=== PATIENT | female | born 1995 | race Caucasian/White ===

== ENCOUNTER → 2019-10-22 13:30 | Outpatient (REF) | payer OTHER, SELFPAY | LOC: ANHLAB 13:30 | PROVIDERS: PCP Physician Assistant; Visit Provider Nurse Practitioner | DX: D22.4 Melanocytic nevi of scalp and neck (principal) | CPT/HCPCS: 88305 ==

== ENCOUNTER 2022-09-20 15:57 | Outpatient (CLI) | payer OTHER, SELFPAY ==
--- NOTE | ~2022-09-20 | US_ITS ---
EXAMINATION: US OB <=14 wk fetus w TV DATE: 09/20/2022 17:20 INDICATION: Encounter for supervision abnormal TECHNIQUE: Real-time transabdominal and transvaginal obstetric ultrasound. FINDINGS: No prior studies for comparison. The uterus measures 6.05 x 4.3 x 5.2 cm. There is an intrauterine gestational sac, with pole id entified. The crown rump length measures 1.79 cm, which correlates with a estimated gestational age of 8 weeks 2 days. heart tones are identified measuring 175. There is a corpus luteal cyst of the left ovary measuring 1.2 cm. IMPRESSION: 1. SL IUP with an EGA of 8 weeks, 2 days (EDC by current ultrasound of 04/30/2023). Reviewed, dictated and finalized at location A. IMPRESSION: 1. SL IUP with an EGA of 8 weeks, 2 days (EDC by current ultrasound of 04/30/20 23).
== END 2022-09-20 15:58 | disposition home or self-care (01) ==
PROVIDERS: PCP Physician Assistant; Visit Provider Registered Nurse
DX: Z34.90 Encounter for supervision of normal pregnancy, unspecified, unspecified trimester (principal)
CPT/HCPCS: 76801; 76817

== ENCOUNTER 2023-01-28 08:09 | Outpatient (RCR) | payer OTHER, SELFPAY ==
[2023-01-28 09:38] LABS: Basophils Percent Auto 0.3 % (0.2-1.2); Eosinophils Absolute Auto 0.1 K/mm3 (0-0.3); Eosinophils Percent Auto 0.7 % (0-4.4); Hematocrit 30.9 % (37.0-47.0); Hemoglobin 10.4 g/dL (12.0-15.0); Immature Granulocyte Absolute 0.39 K/mm3 (0.00-0.031); Immature Granulocyte Percent A 3.2 % (0-0.5); Lymphocytes Absolute Auto 1.61 K/mm3 (0.9-3.2); Lymphocytes Percent Auto 13.3 % (18.3-44.2); Mean Corpuscular HGB Conc 33.7 g/dl (32-36); Mean Corpuscular Hemoglobin 29.9 pg (26-34); Mean Corpuscular Volume 88.8 fl (80-100); Monocytes Absolute Auto 0.7 K/mm3 (0.1-0.6); Monocytes Percent Auto 5.9 % (2.6-8.5); Neutrophils Absolute Auto 9.3 K/mm3 (1.3-6.7); Neutrophils Percent Auto 76.6 % (45.5-73.1); Platelet Count Result 279 k/mm3 (150-375); Red Blood Count 3.48 M/mm3 (4.2-5.4); Red Cell Distribution Width 12.8 % (11.5-14.5); White Blood Count 12.1 K/mm3 (4.5-10.0)
[2023-01-28 09:48] LABS: Glucose 1 Hour PP 50gm Dose 128 mg/dL
[2023-01-29] MEDS: RHO(D) IMMUNE GLOBULIN 300 MCG/2 ML SYRINGE IM (10:02)
== END 2023-04-28 23:59 | disposition home or self-care (01) ==
LOC: ANHLAB 08:09
PROVIDERS: PCP Physician Assistant; Visit Provider Obstetrics & Gynecology
DX: Z29.13 Encounter for prophylactic Rho(D) immune globulin (principal); O36.0190 Maternal care for anti-D [Rh] antibodies, unspecified trimester, not applicable or unspecified; Z3A.00 Weeks of gestation of pregnancy not specified
CPT/HCPCS: 36415; 82947; 85025; 85461; 86850; 86900; 86901; 90384; 96372; J2790

== ENCOUNTER 2023-04-05 12:37 | Outpatient (CLI) | payer OTHER, SELFPAY ==
--- NOTE | ~2023-04-05 | US_ITS ---
EXAMINATION: US venous doppler LE RT DATE: 04/05/2023 13:15 INDICATION: Right lower limb pain and swelling TECHNIQUE: Grayscale ultrasound images without and with compression and Doppler ultrasound images of the right lower extremity veins were obtained. COMPARISON: None. FINDINGS: The visualized portions of right common femoral vein, profunda (deep) femoral vein, femoral vein, pop liteal vein, peroneal trunk, posterior tibial veins, peroneal veins, gastrocnemius vein and greater s aphenous vein outflow are patent. IMPRESSION: 1. No deep venous thrombosis in the right lower limb. Reviewed, dictated and finalized at location A.
== END 2023-04-05 12:38 | disposition home or self-care (01) ==
PROVIDERS: PCP Physician Assistant; Visit Provider Obstetrics & Gynecology
DX: M79.89 Other specified soft tissue disorders (principal)
CPT/HCPCS: 93971

== ENCOUNTER 2023-04-11 07:43 | Inpatient (IN) | payer OTHER, SELFPAY ==
[2023-04-11] VITALS (141 sets, daily range): BP systolic 80–147; BP diastolic 45–115; PULSE 25–207; TEMP 36.8–37.7; O2SAT 64–100; BMI 34.9
--- NOTE | 2023-04-11 09:58 | WPDANESEPP ---
Anes - Eval Pre Procedure Procedure: labor epidural Date/Time: 04/11/23 09:58 Preop Diagnosis: labor pain Pre Op Diagnosis: Leaking Patient Data Age: 27 Gender: F Height: Weight: Last Vital Signs Pulse 108 H 04/11/23 08:45 BP 125/84 04/11/23 08:45 Allergies Allergy/AdvReac Type Severity Reaction Status Date / Time lanolin Allergy Unknown Verified 04/07/23 15:06 MED CHAP STICK Allergy Unknown LIP Uncoded 04/07/23 15:06 SWELLING AND SCABBING Home Medications Medication Instructions Recorded Confirmed Type prenat.vits,vazquez,[id number] 1 tablet PO DAILY 09/15/22 03/30/23 History ferrous sulfate 325 mg (65 mg 325 mg PO DAILY 02/01/23 03/30/23 History iron) tablet Laboratory Tests 04/11/23 09:53 WBC Pending RBC Pending Hgb Pending Hct Pending MCV Pending MCH Pending MCHC Pending RDW Pending Plt Count Pending MPV Pending Immature Gran % (Auto) Pending Neut % (Auto) Pending Lymph % (Auto) Pending [place] % (Auto) Pending Eos % (Auto) Pending Baso % (Auto) Pending Lymph # (Auto) Pending [place] # (Auto) Pending Eos # (Auto) Pending Baso # (Auto) Pending Abs Immat Gran (auto) Pending Absolute Neuts (auto) Pending Absolute Nucleated RBC Pending Nucleated RBC % Pending RPR Pending Patient hx anesthesia problems: none Family hx anesthesia problems: none Results Review: All pre-operative results and documents have been reviewed as part of the pre-operative evaluation. [facility] Past Medical History Medical History Asthma History of ankle fracture 2016 Migraines Surgical History Surgical History History of ankle surgery 2016 Family History Family History Grandparent Family history of coronary artery disease Mother Patient's mother is in good health Father Patient's father is in good health Social History Social History Smoking status: Never smoker Second hand tobacco smoke exposure: No Alcohol intake: former Alcohol use details: Not since Substance use: never Lack of Transportation: No Lack of Food: Never True Current Housing: I Do Not Have Housing Concerned About Future Housing: No Difficulty Paying Gas/Electric Bills: No Difficulty Paying for Meds: No Currently Unemployed: No Education: Master's Degree or Higher Difficulty w/ Childcare or Family Care: No Living arrangements: with family Occupation/Education: occupation Gender identity (if verbalized by the patient): Female Sexual Orientation (if Verbalized by the Patient): Straight or Heterosexual Spiritual care concerns: No Exam Day of Procedure 04/11/23 09:58 Patient weight: normal Heart: regular rate and rhythm Lungs: clear to auscultation and normal air movement Airway: Mallampati scale class II Neurological: alert and oriented
[2023-04-11 10:00] LABS: Basophils Percent Auto 0.3 % (0.2-1.2); Eosinophils Absolute Auto 0.1 K/mm3 (0-0.3); Eosinophils Percent Auto 0.8 % (0-4.4); Hematocrit 36.3 % (37.0-47.0); Hemoglobin 12.2 g/dL (12.0-15.0); Immature Granulocyte Absolute 0.13 K/mm3 (0.00-0.031); Immature Granulocyte Percent A 1.1 % (0-0.5); Lymphocytes Absolute Auto 1.92 K/mm3 (0.9-3.2); Lymphocytes Percent Auto 16.5 % (18.3-44.2); Mean Corpuscular HGB Conc 33.6 g/dl (32-36); Mean Corpuscular Hemoglobin 28.7 pg (26-34); Mean Corpuscular Volume 85.4 fl (80-100); Monocytes Absolute Auto 0.9 K/mm3 (0.1-0.6); Monocytes Percent Auto 7.5 % (2.6-8.5); Neutrophils Absolute Auto 8.6 K/mm3 (1.3-6.7); Neutrophils Percent Auto 73.8 % (45.5-73.1); Platelet Count Result 212 k/mm3 (150-375); Red Blood Count 4.25 M/mm3 (4.2-5.4); Red Cell Distribution Width 14.8 % (11.5-14.5); White Blood Count 11.7 K/mm3 (4.5-10.0)
--- NOTE | 2023-04-11 10:01 | LDADM ---
This patient, Eliana Guillen, was admitted to Labor/Delivery/Recovery 107 on 04/11/23 at 07:43. Plans for labor, pain management and were discussed with patient. Patient/family oriented to hospital policies and general routines including ID bracelet, bed and alarms, visiting hours, pain management, procedures, bathroom and other care routines, personal items, smoking policy, room service/diet and guest tray routines, security routines, and visiting hours. Patient/Family are encouraged to report perceived risks to care and to ask questions if they do not understand what they are told or what they should do. See OBIX for further documentation.
--- NOTE | 2023-04-11 11:04 | PM.IMHP ---
H&P: HPI History of Present Illness Date/Time: 04/11/23 11:04 Chief Complaint: Leaking of fluid Narrative: She is at 37 weeks presented with SROM clear at approximately 0630. Occasional ctx. PNC uncomplicated. Review of Systems Review of Systems: All systems reviewed & are unremarkable except as noted in HPI and below Constitutional: Constitutional: Reports no additional constitutional complaints and Denies headache(s) Eyes: Eyes: Denies spots in vision ENT: Reports system reviewed and no additional complaints, except as documented and Denies headache(s) Cardiovascular: Cardiovascular: Denies chest pain and Denies dyspnea Respiratory: Respiratory: Denies dyspnea Gastrointestinal: Gastrointestinal: Reports no additional gastrointestinal complaints Genitourinary: Genitourinary: Reports amenorrhea Musculoskeletal: Musculoskeletal: Reports no additional musculoskeletal complaints Integumentary/Breasts: Skin/Breast: Denies breast mass and Denies rash Neurologic: Denies headache(s) Psychiatric: Psychiatric: Reports no additional psychiatric complaints PMFSH Past Medical History Medical History Asthma History of ankle fracture 2016 Migraines Surgical History Surgical History History of ankle surgery 2016 Family History Family History Grandparent Family history of coronary artery disease Mother Patient's mother is in good health Father Patient's father is in good health Social History Social History Smoking status: Never smoker Second hand tobacco smoke exposure: No Alcohol intake: former Alcohol use details: Not since Substance use: never Lack of Transportation: No Lack of Food: Never True Current Housing: I Have Housing Concerned About Future Housing: No Difficulty Paying Gas/Electric Bills: No Difficulty Paying for Meds: No Currently Unemployed: No Education: Master's Degree or Higher Difficulty w/ Childcare or Family Care: No Living arrangements: with family Occupation/Education: occupation Gender identity (if verbalized by the patient): Female Sexual Orientation (if Verbalized by the Patient): Straight or Heterosexual Spiritual care concerns: No Meds Home Medications and Allergies Home Medications Medication Instructions Recorded Confirmed Type prenat.vits,vazquez,[id number] 1 tablet PO DAILY 09/15/22 04/11/23 History ferrous sulfate 325 mg (65 mg 325 mg PO DAILY 02/01/23 04/11/23 History iron) tablet Allergies Allergy/AdvReac Type Severity Reaction Status Date / Time lanolin Allergy Unknown Verified 04/07/23 15:06 MED CHAP STICK Allergy Unknown LIP Uncoded 04/07/23 15:06 SWELLING AND SCABBING Vital Signs Vital Signs - 24 hr 04/11/23 08:15 04/11/23 08:30 04/11/23 08:45 Pulse Rate 96 89 108 H Blood Pressure 126/92 H 119/88 125/84 Oxygen Delivery 04/11/23 08:30 Pulse Rate Blood Pressure Oxygen Delivery Room Air Exam Const: General: no acute distress Eyes: General: appearance normal, both eyes and all related structures Resp: Effort & Inspection: normal respiratory effort Cardio: Rate: regular rate GI: Other: Gravid no fundal tenderness no right upper quadrant pain Skin: General skin exam: no rashes or lesions noted Neuro: Cognition (Neuro): normal cognition Extrem: General: normal to inspection Psych: Mental Status: mental status grossly normal H&P: Results Labs Labs: Short CBC 04/11/23 Range/Units 09:53 WBC 11.7 H (4.5-10.0) K/mm3 Hgb 12.2 (12.0-15.0) g/dL Hct 36.3 L (37.0-47.0) % Plt Count 212 (150-375) k/mm3 Assessment and Plan Assessment and plan (1) Spontaneous rupture of membranes: S
[2023-04-11] MEDS: LACTATED RINGERS 1,000 ML 125 ML IV CONT ×3 (13:30→23:30)
[2023-04-11] MEDS: OXYTOCIN 30 UNITS/NS 500 ML 30 UNITS/500 ML BAG 6 UNITS IV CONT (13:40)
[2023-04-11] MEDS: fentaNYL CITRATE INJ (*CRX) 100 MCG/2 ML VIAL 50 MCG IV PUSH (17:37)
[2023-04-11] MEDS: fentaNYL CITRATE INJ (*CRX) 100 MCG/2 ML VIAL IV PUSH (18:44)
[2023-04-12] VITALS (57 sets, daily range): BP systolic 40–137; BP diastolic 17–96; PULSE 72–232; RESP 16; TEMP 36.6–38.3; O2SAT 98
[2023-04-12] MEDS: AMPICILLIN 2 GM/NS 100 ML 2 GM/100 ML BAG IVPB (00:40)
[2023-04-12] MEDS: AMPICILLIN 1 GM/NS 50 ML 1 GM/50 ML BAG IVPB ×2 (04:32→08:53)
[2023-04-12] MEDS: ONDANSETRON INJ 4 MG/2 ML VIAL IV PUSH (05:08)
[2023-04-12] MEDS: ACETAMINOPHEN 500 MG TABLET 1000 MG PO (07:31)
[2023-04-12] MEDS: LACTATED RINGERS 1,000 ML 125 ML IV CONT (08:00)
[2023-04-12] MEDS: LIDOCAINE HCL 1% LOCAL INJ 20 ML VIAL (11:17)
[2023-04-12] MEDS: miSOPROStol 200 MCG TABLET 1000 MCG (11:21)
[2023-04-12] MEDS: IBUPROFEN 600 MG TABLET (13:00)
[2023-04-12] MEDS: HYDROcodone/acetaminophen (*CRX) 5-325 MG TABLET 1 TAB PO ×2 (13:00→19:06)
[2023-04-12 14:31] LABS: Rapid Plasma Reagin Non-Reactive (NonReactive)
--- NOTE | 2023-04-12 15:00 | PC.NURSE ---
Pt would like to pump but states she doesn't think that the flanges that came with her pump are the right size. Zachary Sanders RN, nurse notified, she is going in the room to assist mother with pumping and sizing of flanges.
--- NOTE | 2023-04-12 16:27 | PC.NURSE ---
[id number] Introductions were made and mother is provided with a breast pump due to separation. Instructions given on cleaning, care, usage, that there should be no pain, pumping schedule for milk production, collection, and storage of human milk. Parents are encouraged to record pumping schedule on the pumping log. Patient was assessed for correct placement, flange size using a 21mm without pain, to pump for comfort and nipple stretching/stimulation for adequate milk production every 3 hours (8 times in 24 hours) 1-2 times at night. Mothers nipples are smooth and have a very low profile when stimulated. Mother demonstrated understanding of hand expression, nipple stretching and stimulation to protect the milk supply and improve protractility. Mother voiced understanding of the education shared along with mom/baby guide and handout for additional resource information. Reported to the primary RN.
[2023-04-12] MEDS: IBUPROFEN 600 MG TABLET PO (19:06)
[2023-04-13 00:18] VITALS: BP 109/72; PULSE 92; RESP 18; TEMP 36.8; O2SAT 98
[2023-04-13] MEDS: HYDROcodone/acetaminophen (*CRX) 5-325 MG TABLET 1 TAB PO ×3 (06:02→16:39)
[2023-04-13] MEDS: IBUPROFEN 600 MG TABLET PO ×2 (06:02→16:39)
[2023-04-13 06:05] LABS: Hematocrit 29.4 % (37.0-47.0); Hemoglobin 9.7 g/dL (12.0-15.0)
[2023-04-13 08:15] VITALS: BP 108/68; PULSE 78; RESP 16; TEMP 36.2; O2SAT 97
[2023-04-13] MEDS: POLYSACCHARIDE IRON COMPLEX 150 MG CAPSULE PO ×2 (10:07→16:39)
[2023-04-13] MEDS: MULTIVIT/MIN/PREN/FOL AC/IRON TABLET 1 TAB PO (10:08)
--- NOTE | 2023-04-13 10:08 | PC.NURSE ---
On 04/13/23, the student, Liz Norman, provided care and completed [facility] documentation on this patient. I have reviewed the student's documentation and agree with the findings.
--- NOTE | 2023-04-13 10:47 | PM.OBPNVD ---
OB - PN: Subj Subjective Date/time seen: 04/12/23 0815 Tracing reviewed, continue labor, temp decreased from 100.9 to 99 with tylenol. No signs of chorio. OB - PN: Obj Data Labs 04/13/23 05:53 Labs: Laboratory Results - last 24 hr 04/11/23 04/13/23 09:53 05:53 Hgb 9.7 L Hct 29.4 L RPR Non-reactive Blood Type O Negative Antibody Screen Negative Screen Negative Baby's Blood Type O pos Baby's DARREN Negative Doses of RhIg Required 1 OB - PN A/P Time Spent With Patient Time: Total time spent is greater than 50% in coordination of care (as documented) at patient's floor/unit and/or counseling patient:
--- NOTE | 2023-04-13 10:48 | PM.OBPRVD ---
OB - Vaginal Delivery Note Procedure Delivery date: 04/13/23 Intrapartal Events: Other (Premature rupture of membranes) Induction method: Per Pitocin Protocol Delivery augmentation: Pitocin Delivery monitor: External FHT and Internal Uterine Route of delivery: Episiotomy description: None Laceration Description: Perineal - 2nd Degree Delivery repair: vicryl (3.0 vicryl) Quantitative Blood Loss (ml): 200 Anesthesia type: Epidural Disposition: Floor Complications: No immediate complications Narrative: Patient admitted on 04/11 after confirmed rupture of membranes. Irregular contractions. After approximately six hours, she was not in labor. She was augmented with Pitocin. She progressed slowly to active labor. She developed a temp of 100.9, decreased with Tylenol. No signs of chorioamnionitis. She had previously been on Ampicillin for prolonged rupture of membranes after 18 hours of rupture. The morning of 04/12 she did dilate to complete. She pushed for almost 3 hours and delivered a male . Compound hand presentation. Infants nose and mouth suctioned at perineum. Infant placed on maternal abdomen. Cord doubly clamped and cut. Infant then taken to warmer. Cord blood and cord gases obtained. Placenta delivered spontaneously and intact. She sustained a vaginal laceration and perineal laceration repaired with 3.0 vicryl. [place] Baby Date of : 04/12/23 Time of : 11:07 Weeks of gestation at delivery: 37 gender: Male Weight (pounds): 7 Weight (ounces): 9 presentation: vertex position: Right Occiput Anterior Placenta delivery description: Spontaneous Cord Vessel Description: 3 Vessels score one minute: 4 score five minutes: 7 AMG Delivery Billing Delivery Delivery: Delivery Charge
[2023-04-13] MEDS: RHO(D) IMMUNE GLOBULIN 300 MCG/2 ML SYRINGE IM (11:19)
--- NOTE | 2023-04-13 12:35 | PC.NURSE ---
1045 - Purposefully rounded to assess needs. Infant is on D10 and Primary RN is taking care of the infant preparing to go to the nursery to do a blood sugar, 24 hour testing and infant has just had a bottle. [id number] Mother came out to the desk to ask for assistance. RN encouraged [id number] at approximately 1150. When entering the room at noon the mother has [id number] and there are no feeding cues or rooting visualized. Mother states had a bottle at 0900 and she would like to practice before her [id number] comes to visit and she doesn't want to have her first in front of her. Encouraged understanding of stimulating with massage touch, changing positions to encourage wakefulness, how to watch for early feeding cues and responsive feeding. RN changed a smear stool diaper and burped infant to assist with stimulating infant to wake and to practice . shows no feeding cues or rooting at all. Infant is sleepy. Mother voiced understanding of skin to skin, stimulating with massage touch, responsive feedings, pumping without pain every 3 hours or hand expressing since flange size is slightly big for mothers breast. Mother plans to bottle feed in a paced flow and states infant doesn't want to open his mouth to bottle feed either. Parents agree that the is difficult to bottle feed. We reviewed late pre term less than 24 hours old behaviors. Supplementing to manage the blood sugar level. has been level 2 with D10 infusing and now has an IV saline locked. Reviewed with parents the infant may be tired from delivery and the experience after . Encouraged [id number] often watching for early feeding cues. Resources provided for inpatient/outpatient with feeding sheet, the mom/baby guide and name remains on the communication board. Parents voiced understanding of information, demonstrated learning and will call if there is a request for assistance. Reported to the Primary RN.
--- NOTE | 2023-04-13 13:31 | PM.OBPNVD ---
OB - PN: Subj Subjective Date/time seen: 04/13/23 13:31 Patient comments: pain well controlled, tolerating diet and other (Decreasing lochia.) OB - PN: Obj Data Labs 04/13/23 05:53 Labs: Laboratory Results - last 24 hr 04/11/23 04/13/23 09:53 05:53 Hgb 9.7 L Hct 29.4 L RPR Non-reactive Blood Type O Negative Antibody Screen Negative Screen Negative Baby's Blood Type O pos Baby's DARREN Negative Doses of RhIg Required 1 OB - PN A/P Plan day: 1 Plan: routine care Comments: Patient doing well. Time Spent With Patient Time: Total time spent is greater than 50% in coordination of care (as documented) at patient's floor/unit and/or counseling patient: Exam Psych: Affect: normal affect Other: Abd: fundus firm below umbilicus, nontender Perineum: healing Ext: nontender
[2023-04-13 20:40] VITALS: BP 101/77; PULSE 90; RESP 16; TEMP 36.9; O2SAT 99
[2023-04-14] MEDS: HYDROcodone/acetaminophen (*CRX) 5-325 MG TABLET 1 TAB PO ×2 (00:40→09:43)
[2023-04-14] MEDS: IBUPROFEN 600 MG TABLET PO ×2 (00:40→09:43)
[2023-04-14 07:40] VITALS: BP 124/73; PULSE 74; RESP 18; TEMP 36.6; O2SAT 98
[2023-04-14 08:00] VITALS: PULSE 74; RESP 18; O2SAT 98
[2023-04-14] MEDS: DOCUSATE SODIUM 100 MG CAPSULE PO (09:42)
[2023-04-14] MEDS: MULTIVIT/MIN/PREN/FOL AC/IRON TABLET 1 TAB PO (09:42)
[2023-04-14] MEDS: POLYSACCHARIDE IRON COMPLEX 150 MG CAPSULE PO (09:42)
--- NOTE | 2023-04-14 14:28 | PC.NURSE ---
Patient viewed the discharge video Mother & Baby Care, The First Two Weeks . Patient was given the opportunity and encouraged to ask questions. Patient verbalized understanding of information shared and has been given the mother/baby guide for home reference.
[2023-04-16 11:57] VITALS: BP 131/87; PULSE 74; RESP 18; TEMP 36.6; O2SAT 98
--- NOTE | 2023-04-22 12:14 | PM.OBDSVD ---
DS: Admitting Diagnosis Discharge Date 04/14/23 Admitting Diagnosis Spontaneous rupture of membranes DS: Discharge Diagnosis Discharge Diagnosis (1) Prolonged rupture of membranes: Code(s): O42.90 - Premature rupture of membranes, unspecified as to length of time between rupture and onset of labor, unspecified weeks of gestation Status: Acute (2) Vaginal delivery: Code(s): O80 - Encounter for full-term uncomplicated delivery Status: Acute OB - DS: Summary Hospital Course Hospital Course: She was admitted for spontaneous rupture of membranes she did have Pitocin for augmentation. She did receive GBS prophylaxis antibiotics due to prolonged rupture membranes. She did have a vaginal delivery. she did well baby did well. She was discharged home on day 2. OB Procedures : Ultrasound OB Procedures Intrapartum: Spontaneous Vag Delivery OB Procedures: : None Peripartum Data Delivery Method: Natural Vaginal Laceration Description: Perineal - 2nd Degree Episiotomy description: None complications: none Status at Discharge Functional status at discharge: independent ambulation Time Spent with Patient Time attestation: Total time spent providing and/or coordinating discharge services: Exam Const: General: cooperative Orientation/consciousness: oriented to person, oriented to place and oriented to time HENMT: Face/Nose/Sinus: Normal external nose present Eyes: General: appearance normal, both eyes and all related structures Resp: Effort & Inspection: normal respiratory effort GI: Inspection: normal to inspection Skin: General skin exam: normal color Neuro: General: oriented to person, oriented to place and oriented to time Extrem: General: normal to inspection and no calf tenderness Psych: Appearance: grossly normal Mental Status: mental status grossly normal Discharge Plan Discharge Attending physician on discharge: David Harden Consulting providers: Faith Begum Discharging Clinician: David Harden Patient Disposition: Home, Self-Care Activity: may shower, no straining and pelvic rest Diet: regular Discharge Instructions: Education: Mom and Baby Guide Given to: Mother Follow-Up: Call your delivering provider's office for an appointment to be seen in: 2 Weeks Mom and baby should come to the [facility] for the follow-up appointment. Appointment Date/Time: Sunday, April 16, 2023 at 11:00 a.m. What to expect at your follow-up visit: Blood Pressure Check Physical Assessment Call [phone] if you are unable to keep your appointment time. BREAST CARE: * Wear a snug supportive bra. * For engorgement discomfort: Bottle Feeding: * May apply ice packs EPISIOTOMY/PERINEAL CARE: * Until bleeding stops, use your kieran bottle after urinating * Change your pad frequently throughout the day * You may take sitz baths several times a day (fill your bathtub with warm water and soak for 20 minutes.) Do NOT bathe in the water * No tub baths until seen by your physician - You may shower ACTIVITY: * Rest as much as possible. * Do not exercise or lift anything heavier than your baby (such as laundry or other children.) * Avoid stairs or driving as much as possible. * Do not put anything into the vagina. No douching, tampons, or sexual activity until seen by physician. NOTIFY PHYSICIAN IF YOU HAVE ANY QUESTIONS OR IF ANY OF THE FOLLOWING SYMPTOMS OCCUR: * If your perineum becomes red, swollen, or more painful than what you have experienced in the hospital. * If your vaginal bleeding becomes foul smelling. * If your vaginal bleeding becomes more heavy than a period or if your bleeding changes from pink to bright red. However, you may pass an occasional walnut-sized clot once or twice for the first week . * If you experience a sharp, shoot
== END 2023-04-14 14:46 | disposition home or self-care (01) | DRG 806 ==
LOC: ANHLDR 04-12 12:37 → ANHOB2 04-12 14:29
PROVIDERS: Admitting Provider Obstetrics & Gynecology; PCP Physician Assistant; Visit Provider Obstetrics & Gynecology
DX: O69.82X0 Labor and delivery complicated by other cord entanglement, without compression, not applicable or unspecified (principal); O75.2 Pyrexia during labor, not elsewhere classified; Z37.0 Single live birth; Z3A.37 37 weeks gestation of pregnancy; O70.1 Second degree perineal laceration during delivery
CPT/HCPCS: 36415; 85014; 85018; 85025; 85461; 86592; 86850; 86880; 86900; 86901; 86902; 90384; A9270; J0290; J2405; J2590; J2790; J2795; J3010; J7120